=== PATIENT | female | born 1985 | race Caucasian/White ===

== ENCOUNTER 2016-04-28 18:02 | Emergency (ER) | payer SELFPAY ==
[2015-01-12 06:03] VITALS: BMI 29.2
[~2016-04-28 18:02] MED LIST: DIABETA2.5 MG PO; TYLENOL W/CODEI1 TAB PO
== END 2016-04-28 23:29 | disposition home or self-care (01) ==
LOC: D.ER 18:02
DX: S92.402A Displaced unspecified fracture of left great toe, initial encounter for closed fracture (principal); W01.0XXA Fall on same level from slipping, tripping and stumbling without subsequent striking against object, initial encounter; Y93.89 Activity, other specified; Y92.019 Unspecified place in single-family (private) house as the place of occurrence of the external cause; F41.8 Other specified anxiety disorders; J45.909 Unspecified asthma, uncomplicated; F32.9 Major depressive disorder, single episode, unspecified; E11.9 Type 2 diabetes mellitus without complications; E87.6 Hypokalemia; E83.42 Hypomagnesemia

== ENCOUNTER 2016-09-25 21:40 | Emergency (ER) | payer SELFPAY ==
[2015-01-12 06:03] VITALS: BMI 29.2
== END 2016-09-25 22:55 | disposition home or self-care (01) ==
LOC: D.ER 21:40
DX: S51.812A Laceration without foreign body of left forearm, initial encounter (principal); X58.XXXA Exposure to other specified factors, initial encounter

== ENCOUNTER 2016-11-03 12:59 | Inpatient (IN) | payer MEDICAID ==
[~2016-11-03] VITALS: Ht 162.6 cm; Wt 61.4 kg
[~2016-11-03 12:59] MED LIST changes: -DIABETA2.5 MG PO; +GLYBURIDE2.5 MG PO
[2016-11-03 14:18] LABS: BASOPHILS 0.1 % (0-2); EOSINOPHILS 0 % (0-7); HEMATOCRIT 40.8 % (36.0-48.0); HEMOGLOBIN 13.7 g/dL (12-16); IMMATURE GRANULOCYTES 0.4 % (0-5); LYMPHOCYTES 4.6 % (15-50); MCH 29.5 pg (26.0-34.0); MCHC 33.6 g/dL (31.0-37.0); MCV 87.7 fL (80.0-100.0); MEAN PLATELET VOLUME 10.7 fL (7.4-10.4); MONOCYTES 8.4 % (2-11); NEUTROPHILS 86.5 % (40-80); RBC 4.65 10x6/uL (4.00-5.40); RDW 12.5 % (11.5-14.5); WBC 13.6 10x3/uL (4.8-10.8)
[2016-11-03 14:21] LABS: PLATELET COUNT 220 10x3/uL (130-400)
[2016-11-03 14:31] LABS: ALBUMIN 2.7 g/dL (3.4-5.0); ANION GAP 18.2 mmol/L (8-16); BILIRUBIN - TOTAL 0.57 mg/dL (0.2-1.3); CALCIUM 8.6 mg/dL (8.5-10.1); CARBON DIOXIDE 21.3 mmol/L (21.0-32.0); POTASSIUM - SERUM 3.5 mmol/L (3.5-5.1); PROTEIN - SERUM 7.5 g/dL (6.4-8.2)
[2016-11-03 14:54] LABS: AMYLASE - SERUM 13 U/L (25-115); LIPASE 125 U/L (73-393)
[2016-11-03 16:06] LABS: HCG SERUM NEGATIVE (NEGATIVE); KETONE - SERUM NEGATIVE (NEGATIVE)
[2016-11-03 16:07] LABS: MAGNESIUM - SERUM 1.5 mg/dL (1.8-2.4)
[2016-11-03 16:18] LABS: APPEARANCE HAZY (CLEAR); BILIRUBIN NEGATIVE (NEGATIVE); COLOR YELLOW (YELLOW); GLUCOSE 1000 mg/dL (NEGATIVE); HCG URINE NEGATIVE (NEGATIVE); KETONE NEGATIVE (NEGATIVE); LEUKOCYTE ESTERASE 2+ (NEGATIVE); NITRITE POSITIVE (NEGATIVE); PROTEIN 2+ mg/dL (NEGATIVE); SPECIFIC GRAVITY 1.015 (1.005-1.020); UROBILINOGEN NORMAL (NORMAL)
[2016-11-03 16:19] LABS: BACTERIA MANY /hpf (NONE SEEN); WHITE CELLS - URINE >50 /hpf (0-5)
[2016-11-03 16:23] LABS: UDS - AMPHET NEGATIVE QUAL (NEGATIVE); UDS - BARB NEGATIVE QUAL (NEGATIVE); UDS - BENZO NEGATIVE QUAL (NEGATIVE); UDS - COCAINE NEGATIVE QUAL (NEGATIVE); UDS - METH NEGATIVE QUAL (NEGATIVE); UDS - OPIATE NEGATIVE QUAL (NEGATIVE); UDS - PCP NEGATIVE QUAL (NEGATIVE); UDS - THC NEGATIVE QUAL (NEGATIVE)
--- NOTE | 2016-11-03 19:58 | NUR ---
RECIEVED TO ROOM 2138 FROM E.R. VIA STRETCHER. PT A&O. RESPERATOINS EVEN ON RA, VITALS STABLE. IV TO RIGHT FOREARM WITH MAG. INFUSING. SITE CLEAN AND DRY. HISTORY AND MED REC OBTAINED. NO OTHER NEEDS AT THIS TIME. DINNER TRAY PROVIDED.
[2016-11-03 20:00] VITALS: BP 121/73; BP 97/55
[2016-11-03] MEDS ORDERED: GLUCOPHAGE500 MG PO (20:38)
[2016-11-03] MEDS ORDERED: DICLOFENAC SODI50 MG PO (20:39)
[2016-11-03] MEDS ORDERED: IBUPROFEN400 MG PO (20:40)
--- NOTE | 2016-11-03 21:50 | NUR ---
BS 249, COVERED PER S/S.
[2016-11-04] VITALS: BP 121/73
--- NOTE | 2016-11-04 00:32 | NUR ---
TYLENOL 650 MG GIVEN FOR ELEVATED TEMP OF 102.
--- NOTE | 2016-11-04 00:33 | NUR ---
PROFESSIONAL TUTOR AT BEDSIDE TO OBTAIN VITALS, CALL LIGHT IN REACH. WILL CONTINUE WITH PLAN OF CARE.
[2016-11-04 04:00] VITALS: BP 99/64
[2016-11-04 06:06] LABS: CALC OSMOLALITY 276 mosm/kg (275-300); CALCIUM 7.7 mg/dL (8.5-10.1); CARBON DIOXIDE 23.4 mmol/L (21.0-32.0); CHLORIDE - SERUM 101 mmol/L (98-107); CREATININE - SERUM 0.9 mg/dL (0.6-1.3); POTASSIUM - SERUM 3.4 mmol/L (3.5-5.1); SODIUM 136 mmol/L (136-145); UREA NITROGEN 11 mg/dL (7-18); eGFR NON AFRICAN AMERICAN 77 mL/min (90-120)
[2016-11-04 06:07] LABS: BASOPHILS 0.3 % (0-2); EOSINOPHILS 0.7 % (0-7); HEMATOCRIT 35.7 % (36.0-48.0); IMMATURE GRANULOCYTES 0.6 % (0-5); MCH 29.6 pg (26.0-34.0); MCHC 33.6 g/dL (31.0-37.0); MCV 88.1 fL (80.0-100.0); MEAN PLATELET VOLUME 10.9 fL (7.4-10.4); MONOCYTES 7.1 % (2-11); NEUTROPHILS 80.3 % (40-80); PLATELET COUNT 198 10x3/uL (130-400); RBC 4.05 10x6/uL (4.00-5.40); RDW 12.5 % (11.5-14.5)
[2016-11-04 06:10] LABS: GLUCOSE 202 mg/dL (74-106)
--- NOTE | 2016-11-04 08:23 | NUR ---
PT CO PAIN AND MEDICATED ACCORDINGLY. TEMP IS 103.2. ORALLY MEDICATED WITH TYLENOL 650 MG. SKIN VERY WARM TO TOUCH. WHEEZING NOTED ON INSPIRATION IN L UPPER LUNG. MONITOR SHOWS ST@ 118.
[2016-11-04 12:02] VITALS: Ht 162.6 cm; Wt 61.4 kg
[2016-11-04 13:08] VITALS: BP 122/59
[2016-11-04 13:09] VITALS: BP 94/63
--- NOTE | 2016-11-04 16:11 | NUR ---
RATIONALE FOR SCD'S EXPLAINED. REFUSED SCD'S AT THIS TIME
[2016-11-04 16:30] VITALS: BP 124/79
[2016-11-04 20:00] VITALS: BP 102/65
--- NOTE | 2016-11-04 22:02 | NUR ---
PERCOCET 1 TAB GIVEN FOR C/O PAIN TO LEFT SIDE, RATES PAIN AT AN 8 ON PAIN SCALE.
--- NOTE | 2016-11-04 22:27 | NUR ---
SUTURES TO LEFT ARM REMOVED, COVERED WITH BANDAID. PT TOLERATED WELL.
--- NOTE | 2016-11-05 03:42 | NUR ---
CANDY POLISHER AT BED SIDE TO OBTAIN VITALS, WILL CONT TO MONITOR.
[2016-11-05 04:00] VITALS: BP 111/66
[2016-11-05 05:17] LABS: BASOPHILS 0.2 % (0-2); EOSINOPHILS 0.8 % (0-7); HEMATOCRIT 33.1 % (36.0-48.0); IMMATURE GRANULOCYTES 0.6 % (0-5); LYMPHOCYTES 25.8 % (15-50); MCH 29.2 pg (26.0-34.0); MCHC 33.2 g/dL (31.0-37.0); MCV 87.8 fL (80.0-100.0); MEAN PLATELET VOLUME 11.1 fL (7.4-10.4); MONOCYTES 12.1 % (2-11); NEUTROPHILS 60.5 % (40-80); RBC 3.77 10x6/uL (4.00-5.40); RDW 12.6 % (11.5-14.5)
[2016-11-05 05:22] LABS: PLATELET COUNT 156 10x3/uL (130-400); WBC 5.3 10x3/uL (4.8-10.8)
[2016-11-05 05:32] LABS: CALCIUM 7.5 mg/dL (8.5-10.1); CARBON DIOXIDE 22.5 mmol/L (21.0-32.0); CHLORIDE - SERUM 104 mmol/L (98-107); CREATININE - SERUM 0.7 mg/dL (0.6-1.3); POTASSIUM - SERUM 3.2 mmol/L (3.5-5.1); SODIUM 138 mmol/L (136-145); eGFR NON AFRICAN AMERICAN > 90 mL/min (90-120)
[2016-11-05 05:39] LABS: CALC OSMOLALITY 274 mosm/kg (275-300); GLUCOSE 119 mg/dL (74-106); UREA NITROGEN 6 mg/dL (7-18)
--- NOTE | 2016-11-05 06:05 | NUR ---
PERCOCET 1 TAB GIVEN FOR C/O PAIN TO BACK, RATES PAIN AN 8 ON PAIN SCALE.
--- NOTE | 2016-11-05 08:10 | NUR ---
AM ROUNDS - PT IS AWAKE IN BED. SIDE RAILS UP X1, BED IN LOWEST POSITION, CALL POLANCO IN USE/REACH. MONITOR SHOWING SR, HR 86. IV TO RIGHT FA, NS AT 100CC/HR. PT IS ON RA. NO NEEDS AT THIS TIME. WILL CONTINUE TO MONITOR
[2016-11-05 10:02] VITALS: BP 106/66
[2016-11-05 14:42] VITALS: BP 117/70
[2016-11-05 17:48] VITALS: BP 126/76
[2016-11-05 19:00] VITALS: BP 140/78
--- NOTE | 2016-11-05 19:52 | NUR ---
ASSESSMENT COMPLETE, A&O. IV TO LEFT WRIST WITH NS INFUSING AT 100 CC/HR. PT DENIES PAIN OR NEEDS AT THIS TIME, BED LOW, CL IN REACH.
--- NOTE | 2016-11-06 00:37 | NUR ---
PERCOCET GIVEN FOR C/O PAIN. IV TO LEFT WRIST SL. PT C/O WRIST SORE. IV FLUSHED WITH OUT DIFFICULTY HOWEVER PT WAS INSISTANT THAT IS BE SHUT OFF.
--- NOTE | 2016-11-06 01:36 | NUR ---
CALL LIGHT IN REACH, WILL CONTINUE WITH PLAN OF CARE.
[2016-11-06 03:10] LABS: RMSF IGM 0.43 index (0.00-0.89)
[2016-11-06 06:07] LABS: BASOPHILS 0.4 % (0-2); EOSINOPHILS 1.2 % (0-7); HEMATOCRIT 33.3 % (36.0-48.0); HEMOGLOBIN 11.3 g/dL (12-16); IMMATURE GRANULOCYTES 1.6 % (0-5); LYMPHOCYTES 32.6 % (15-50); MCH 29.7 pg (26.0-34.0); MCHC 33.9 g/dL (31.0-37.0); MCV 87.6 fL (80.0-100.0); MEAN PLATELET VOLUME 10.6 fL (7.4-10.4); MONOCYTES 10.3 % (2-11); NEUTROPHILS 53.9 % (40-80); PLATELET COUNT 180 10x3/uL (130-400); RDW 12.6 % (11.5-14.5); WBC 5.7 10x3/uL (4.8-10.8)
[2016-11-06 06:19] LABS: CALC OSMOLALITY 281 mosm/kg (275-300); CALCIUM 8.4 mg/dL (8.5-10.1); CARBON DIOXIDE 26.3 mmol/L (21.0-32.0); CHLORIDE - SERUM 105 mmol/L (98-107); CREATININE - SERUM 0.7 mg/dL (0.6-1.3); GLUCOSE 74 mg/dL (74-106); POTASSIUM - SERUM 3.1 mmol/L (3.5-5.1); SODIUM 143 mmol/L (136-145); UREA NITROGEN 7 mg/dL (7-18); eGFR NON AFRICAN AMERICAN > 90 mL/min (90-120)
[2016-11-06 06:24] VITALS: BP 132/79
[2016-11-06 08:00] VITALS: BP 110/71
--- NOTE | 2016-11-06 08:23 | NUR ---
AM ROUNDS - PT IS AWAKE IN BED TALKING ON THE PHONE. MONITOR SHOWING SR, HR 93. BED AT LOWEST POSITION. CALL POLANCO IN USE/REACH. SIDE RAIL UP X1. PT IS UP AD KAYLEN. IV TO LEFT WRIST, PT C/O PAIN AT SITE. NO SWELLING, WARMTH OR REDNESS. IV FLUIDS ON HOLD AT THIS TIME. WILL REASSESS IV. NO FUTHER NEEDS AT THIS TIME. WILL CONTINUE TO MONITOR
--- NOTE | 2016-11-06 12:04 | NUR ---
MORNING MEDICATIONS GIVEN. NO FUTHER NEEDS AT THIS TIME. WILL CONTINUE TO MONITOR
[2016-11-06] MEDS ORDERED: CIPRO500 MG PO (13:56)
[2016-11-06] MEDS ORDERED: FLORAJEN3 CAPS460 MG PO (13:56)
[2016-11-06] MEDS ORDERED: GLYBURIDE2.5 MG PO (13:56)
[2016-11-06] MEDS ORDERED: GLUCOPHAGE500 MG PO (13:56)
--- NOTE | 2016-11-06 17:46 | NUR ---
D/C - WRITTEN AND VERBAL D/C INSTRUCTIONS GIVEN TO PT. IV D/C WITH CATH TIP INTACT. 2X2 DRESSING APPLIED AND SECURED WITH TAPE. PT REFUSED A WHEELCHAIR AND STATED SHE WANTED TO WALK OUT. WILL D/C
--- NOTE | 2016-11-06 20:24 | NUR ---
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 Yes 0 * How many steps to enter\exit or inside your home? 6 0 * PCP NONE - REFERRED TO [facility] (INFORMATION PROVIDED BY CM) 0 * Pharmacy [facility] [address] 0 * Preadmission Environment Home with Family 0 * ADLs Independent 0 * Equipment None 0 * Other Equipment NO MEDICAL EQUIPMENT PROVIDER PREFERENCE 0 * List name and contact numbers for known caregivers / representatives who currently or will assist patient after discharge: CAREN ROTHMANR, SISTER, LEYLA BURCIAGA, SPOUSE, 0 * Community resources currently utilized None 0 * Please name any agencies selected above. NONE 0 * Additional services required to return to the preadmission environment? No 0 * Can the patient safely return to the preadmission environment? Yes 0 * Has this patient been hospitalized within the prior 30 days at any hospital? No 0 CM MET WITH PT IN ROOM TO DISCUSS DISCHARGE PLANNING AND NEEDS. PT REPORTS LIVING AT HOME INDEPENDENTLY WITH HER SPOUSE. PT HAS NO MEDICAL EQUIPMENT AND NO OUTSIDE SERVICES ASSISTING IN THE HOME. CM DISCUSSED AVAILABILITY OF HOME HEALTH, REHAB SERVICES AND MEDICAL EQUIPMENT. PT DENIES DISCHARGE NEEDS, REPORTS HER SSPOUSE WILL PICK HER UP FOR DISCHARGE HOME. Sales And Service Agent: Phil Ortiz
[2016-11-10 12:11] LABS: F. TULARENSIS - IGG Negative (()); F. TULARENSIS - IGM Negative (())
[2016-11-10 16:11] LABS: EHRLICHIA CHAFF IGG Negative (Neg:<1:64); EHRLICHIA CHAFF IGM Negative (Neg:<1:20); HGE IGG TITER Negative (Neg:<1:64); HGE IGM TITER Negative (Neg:<1:20)
== END 2016-11-06 17:54 | disposition home or self-care (01) | DRG 690 ==
LOC: D.ER 12:59 → D.M2 17:52
PROVIDERS: Emergency Medicine; Nurse Practitioner Family; ADMIT Family Medicine
DX: N10 Acute pyelonephritis (principal); E11.65 Type 2 diabetes mellitus with hyperglycemia; I10 Essential (primary) hypertension; Z91.19 Patient's noncompliance with other medical treatment and regimen; R19.7 Diarrhea, unspecified; T14.8 Other injury of unspecified body region; W57.XXXA Bitten or stung by nonvenomous insect and other nonvenomous arthropods, initial encounter

== ENCOUNTER 2017-01-14 11:20 | Emergency (ER) | payer MEDICAID ==
[2016-11-04 12:02] VITALS: BMI 24.0
[~2017-01-14 11:20] MED LIST changes: +CIPRO500 MG PO; +DICLOFENAC SODI50 MG PO; +FLORAJEN3 CAPS460 MG PO; +GLUCOPHAGE500 MG PO; +IBUPROFEN400 MG PO
== END 2017-01-14 15:25 | disposition home or self-care (01) ==
LOC: D.ER 11:20
DX: S00.531A Contusion of lip, initial encounter (principal); V49.9XXA Car occupant (driver) (passenger) injured in unspecified traffic accident, initial encounter; Y93.89 Activity, other specified; Y92.410 Unspecified street and highway as the place of occurrence of the external cause; M54.5 Low back pain; F17.200 Nicotine dependence, unspecified, uncomplicated

== ENCOUNTER 2017-02-18 12:51 | Emergency (ER) | payer MEDICAID ==
[2016-11-04 12:02] VITALS: BMI 24.0
== END 2017-02-18 14:22 | disposition home or self-care (01) ==
LOC: D.ER 12:51
DX: M79.602 Pain in left arm (principal); W19.XXXA Unspecified fall, initial encounter; Y93.89 Activity, other specified; Y92.029 Unspecified place in mobile home as the place of occurrence of the external cause; E11.9 Type 2 diabetes mellitus without complications

== ENCOUNTER 2017-07-24 15:40 | Emergency (ER) | payer MEDICAID ==
[2016-11-04 12:02] VITALS: BMI 24.0
[2017-07-24 17:15] LABS: APPEARANCE HAZY (CLEAR); BACTERIA MANY /hpf (NONE SEEN); BILIRUBIN NEGATIVE (NEGATIVE); COLOR DK YELLOW (YELLOW); EPITHELIAL CELLS 0-5 /hpf (0-5); GLUCOSE NEGATIVE (NEGATIVE); KETONE NEGATIVE (NEGATIVE); NITRITE POSITIVE (NEGATIVE); PROTEIN 1+ mg/dL (NEGATIVE); RED CELLS - URINE 0-5 /hpf (0-5); SPECIFIC GRAVITY 1.015 (1.005-1.020); UROBILINOGEN NORMAL (NORMAL); WHITE CELLS - URINE >50 /hpf (0-5)
[2017-07-24 18:10] LABS: BASOPHILS 0.2 % (0-2); EOSINOPHILS 0.1 % (0-7); HEMATOCRIT 42.4 % (36.0-48.0); HEMOGLOBIN 14.4 g/dL (12-16); IMMATURE GRANULOCYTES 0.4 % (0-5); LYMPHOCYTES 18.3 % (15-50); MCH 28.9 pg (26.0-34.0); MCV 85.1 fL (80.0-100.0); MEAN PLATELET VOLUME 11.2 fL (7.4-10.4); RBC 4.98 10x6/uL (4.00-5.40); RDW 13.6 % (11.5-14.5); WBC 13.8 10x3/uL (4.8-10.8)
[2017-07-24 18:17] LABS: PLATELET COUNT 256 10x3/uL (130-400)
[2017-07-24 18:33] LABS: ALBUMIN 3.2 g/dL (3.4-5.0); ALKALINE PHOSPHATASE 61 U/L (46-116); ALT (SGPT) 24 U/L (10-68); AMYLASE - SERUM 15 U/L (25-115); CALC OSMOLALITY 273 mosm/kg (275-300); CALCIUM 8.5 mg/dL (8.5-10.1); CARBON DIOXIDE 27.9 mmol/L (21.0-32.0); CHLORIDE - SERUM 98 mmol/L (98-107); CREATININE - SERUM 0.9 mg/dL (0.6-1.3); GLUCOSE 164 mg/dL (74-106); LIPASE 94 U/L (73-393); PROTEIN - SERUM 7.9 g/dL (6.4-8.2); SODIUM 136 mmol/L (136-145); UREA NITROGEN 7 mg/dL (7-18); eGFR NON AFRICAN AMERICAN 77 mL/min (90-120)
[2017-07-24 18:36] LABS: POTASSIUM - SERUM 2.7 mmol/L (3.5-5.1)
== END 2017-07-24 21:45 | disposition home or self-care (01) ==
LOC: D.ER 15:40
PROVIDERS: Family Medicine
DX: N10 Acute pyelonephritis (principal); N30.00 Acute cystitis without hematuria; E11.9 Type 2 diabetes mellitus without complications

== ENCOUNTER 2017-08-29 19:45 | Emergency (ER) | payer MEDICAID ==
[2016-11-04 12:02] VITALS: BMI 24.0
[2017-08-29 20:14] LABS: BASOPHILS 0.3 % (0-2); EOSINOPHILS 2.6 % (0-7); HEMATOCRIT 38.8 % (36.0-48.0); HEMOGLOBIN 12.4 g/dL (12-16); IMMATURE GRANULOCYTES 0.2 % (0-5); LYMPHOCYTES 37.6 % (15-50); MCH 28.3 pg (26.0-34.0); MCV 88.6 fL (80.0-100.0); MEAN PLATELET VOLUME 9.8 fL (7.4-10.4); MONOCYTES 5.8 % (2-11); NEUTROPHILS 53.5 % (40-80); PLATELET COUNT 283 10x3/uL (130-400); RBC 4.38 10x6/uL (4.00-5.40); RDW 14.9 % (11.5-14.5); WBC 10.3 10x3/uL (4.8-10.8)
[2017-08-29 20:18] LABS: APPEARANCE SLT CLOUDY (CLEAR); BILIRUBIN NEGATIVE (NEGATIVE); COLOR YELLOW (YELLOW); GLUCOSE NEGATIVE (NEGATIVE); KETONE NEGATIVE (NEGATIVE); NITRITE NEGATIVE (NEGATIVE); PROTEIN TRACE mg/dL (NEGATIVE); SPECIFIC GRAVITY 1.015 (1.005-1.020); UROBILINOGEN NORMAL (NORMAL)
[2017-08-29 20:20] LABS: EPITHELIAL CELLS 0-5 /hpf (0-5); RED CELLS - URINE 0-5 /hpf (0-5)
[2017-08-29 20:21] LABS: BACTERIA FEW /hpf (NONE SEEN)
[2017-08-29 20:30] LABS: ALBUMIN 3.1 g/dL (3.4-5.0); ALKALINE PHOSPHATASE 52 U/L (46-116); ALT (SGPT) 31 U/L (10-68); CALC OSMOLALITY 279 mosm/kg (275-300); CALCIUM 8.5 mg/dL (8.5-10.1); CARBON DIOXIDE 26.6 mmol/L (21.0-32.0); CHLORIDE - SERUM 107 mmol/L (98-107); CREATININE - SERUM 0.9 mg/dL (0.6-1.3); GLUCOSE 141 mg/dL (74-106); POTASSIUM - SERUM 3.2 mmol/L (3.5-5.1); PROTEIN - SERUM 6.7 g/dL (6.4-8.2); SODIUM 140 mmol/L (136-145); UREA NITROGEN 9 mg/dL (7-18); eGFR NON AFRICAN AMERICAN 77 mL/min (90-120)
== END 2017-08-29 21:50 | disposition home or self-care (01) ==
LOC: D.ER 19:45
PROVIDERS: Family Medicine
DX: N39.0 Urinary tract infection, site not specified (principal); J06.9 Acute upper respiratory infection, unspecified; R30.0 Dysuria; F17.200 Nicotine dependence, unspecified, uncomplicated

== ENCOUNTER 2017-12-25 18:55 | Emergency (ER) | payer MEDICAID ==
[~2017-12-25] VITALS: Ht 162.6 cm; Wt 74.1 kg
[2017-12-25 18:57] VITALS: Ht 162.6 cm; Wt 74.1 kg
[2017-12-25] MEDS ORDERED: SEROQUEL50 MG PO (19:00)
[2017-12-25] MEDS ORDERED: EFFEXOR50 MG PO (19:01)
[2017-12-25] MEDS ORDERED: XANAX0.5 MG (19:02)
[2017-12-25 19:51] LABS: HCG URINE NEGATIVE (NEGATIVE)
[2017-12-25 20:04] LABS: APPEARANCE HAZY (CLEAR); BILIRUBIN NEGATIVE (NEGATIVE); COLOR YELLOW (YELLOW); GLUCOSE NEGATIVE (NEGATIVE); KETONE NEGATIVE (NEGATIVE); NITRITE NEGATIVE (NEGATIVE); PROTEIN TRACE mg/dL (NEGATIVE); SPECIFIC GRAVITY 1.015 (1.005-1.020); UROBILINOGEN NORMAL (NORMAL)
[2017-12-25 20:05] LABS: BACTERIA MANY /hpf (NONE SEEN); EPITHELIAL CELLS 0-5 /hpf (0-5); RED CELLS - URINE >50 /hpf (0-5); WHITE CELLS - URINE 0-5 /hpf (0-5)
[2017-12-25] MEDS ORDERED: TORADOL10 MG PO (22:02)
[2017-12-25] MEDS ORDERED: OMNICEF300 MG PO (22:02)
[2017-12-25 22:15] VITALS: BP 128/83
== END 2017-12-25 22:15 | disposition home or self-care (01) ==
LOC: D.ER 18:55
PROVIDERS: Family Medicine
DX: H66.91 Otitis media, unspecified, right ear (principal); J40 Bronchitis, not specified as acute or chronic; R30.0 Dysuria; R10.9 Unspecified abdominal pain; R09.89 Other specified symptoms and signs involving the circulatory and respiratory systems; E11.9 Type 2 diabetes mellitus without complications; F17.200 Nicotine dependence, unspecified, uncomplicated

== ENCOUNTER 2018-07-18 02:13 | Emergency (ER) | payer MEDICAID ==
[~2018-07-18] VITALS: Ht 162.6 cm; Wt 83.9 kg
[~2018-07-18 02:13] MED LIST changes: +EFFEXOR50 MG PO; +OMNICEF300 MG PO; +SEROQUEL50 MG PO; +TORADOL10 MG PO; +XANAX0.5 MG PO
[2018-07-18 02:19] VITALS: Ht 162.6 cm; Wt 83.9 kg
[2018-07-18 02:40] LABS: APPEARANCE CLEAR (CLEAR); BACTERIA NONE SEEN /hpf (NONE SEEN); BILIRUBIN NEGATIVE (NEGATIVE); COLOR YELLOW (YELLOW); EPITHELIAL CELLS RARE /hpf (0-5); GLUCOSE NEGATIVE (NEGATIVE); HCG URINE NEGATIVE (NEGATIVE); KETONE NEGATIVE (NEGATIVE); NITRITE NEGATIVE (NEGATIVE); PROTEIN NEGATIVE (NEGATIVE); RED CELLS - URINE NONE SEEN /hpf (0-5); SPECIFIC GRAVITY 1.015 (1.005-1.020); UROBILINOGEN NORMAL (NORMAL); WHITE CELLS - URINE 0-5 /hpf (0-5)
[2018-07-18 02:41] LABS: BASOPHILS 0.3 % (0-2); EOSINOPHILS 2.9 % (0-7); HEMATOCRIT 38.4 % (36.0-48.0); HEMOGLOBIN 12.7 g/dL (12-16); IMMATURE GRANULOCYTES 0.3 % (0-5); LYMPHOCYTES 37.5 % (15-50); MCH 28.9 pg (26.0-34.0); MCHC 33.1 g/dL (31.0-37.0); MCV 87.5 fL (80.0-100.0); MEAN PLATELET VOLUME 10.2 fL (7.4-10.4); PLATELET COUNT 293 10x3/uL (130-400); RBC 4.39 10x6/uL (4.00-5.40); RDW 13.1 % (11.5-14.5); WBC 10.5 10x3/uL (4.8-10.8)
[2018-07-18 02:53] LABS: ALBUMIN 3.5 g/dL (3.4-5.0); ALKALINE PHOSPHATASE 67 U/L (46-116); ALT (SGPT) 18 U/L (10-68); AMYLASE - SERUM 34 U/L (25-115); BILIRUBIN - TOTAL 0.37 mg/dL (0.2-1.3); CALC OSMOLALITY 282 mosm/kg (275-300); CARBON DIOXIDE 24.8 mmol/L (21.0-32.0); CHLORIDE - SERUM 101 mmol/L (98-107); CREATININE - SERUM 0.9 mg/dL (0.6-1.3); GLUCOSE 260 mg/dL (74-106); LIPASE 266 U/L (73-393); PROTEIN - SERUM 7.3 g/dL (6.4-8.2); SODIUM 137 mmol/L (136-145); TROPONIN-I < 0.017 ng/mL (0.000-0.060); UREA NITROGEN 13 mg/dL (7-18); eGFR NON AFRICAN AMERICAN 76 mL/min (90-120)
[2018-07-18] MEDS ORDERED: ACETAMINOPHEN500 M1 PO (05:20)
[2018-07-18] MEDS ORDERED: IBUPROFEN800 MG PO (05:20)
[2018-07-18] MEDS ORDERED: CYCLOBENZAPRINE10 MG PO (05:20)
[2018-07-18 05:27] VITALS: BP 125/76
== END 2018-07-18 05:27 | disposition home or self-care (01) ==
LOC: D.ER 02:13
PROVIDERS: Family Medicine
DX: R10.30 Lower abdominal pain, unspecified (principal)

== ENCOUNTER 2018-07-26 06:26 | Day surgery (SDC) | payer MEDICAID ==
[2018-07-23 14:01] LABS: BASOPHILS 0.4 % (0-2); HEMATOCRIT 35.6 % (36.0-48.0); HEMOGLOBIN 11.8 g/dL (12-16); IMMATURE GRANULOCYTES 0.3 % (0-5); MCH 28.6 pg (26.0-34.0); MCHC 33.1 g/dL (31.0-37.0); MCV 86.4 fL (80.0-100.0); MEAN PLATELET VOLUME 9.6 fL (7.4-10.4); MONOCYTES 6.3 % (2-11); PLATELET COUNT 271 10x3/uL (130-400); RBC 4.12 10x6/uL (4.00-5.40); RDW 13.3 % (11.5-14.5); WBC 7.7 10x3/uL (4.8-10.8)
[2018-07-23 14:16] LABS: ANION GAP 13.7 mmol/L (8-16); CALCIUM 7.6 mg/dL (8.5-10.1); CARBON DIOXIDE 23.1 mmol/L (21.0-32.0); CREATININE - SERUM 1.2 mg/dL (0.6-1.3); POTASSIUM - SERUM 3.8 mmol/L (3.5-5.1)
[~2018-07-26] VITALS: Ht 162.6 cm; Wt 85.3 kg
--- NOTE | ~2018-07-26 | OP ---
PATIENT NAME: MONIK BURCIAGA MEDICAL RECORD: [id number] :85 LOCATION:D.OPS ADMISSION DATE: SURGEON: NIC PERKINS MD DATE OF OPERATION: 07/26/2018 PREOPERATIVE DIAGNOSES: 1. Pelvic pain. 2. Dysmenorrhea. 3. Dysfunctional uterine bleeding. 4. Cervical stenosis. POSTOPERATIVE DIAGNOSES: 1. Pelvic pain. 2. Dysmenorrhea. 3. Dysfunctional uterine bleeding. 4. Severe pelvic adhesive disease. 5. Cervical stenosis. PROCEDURES: 1. Diagnostic laparoscopy. 2. Laparoscopic lysis of adhesions. 3. Hysteroscopy with dilation and curettage. SURGEON: Nic Perkins MD JOURNEYMAN TOOL AND DIE MAKER: Viv Henley ANESTHESIOLOGIST: Dr. Swartz ANESTHESIA: General. FINDINGS: Uterus is slightly enlarged and boggy. The uterus is densely adhesed anteriorly to the abdominal wall. The tube was adhesed to the anterior abdominal wall. At the time of hysteroscopy, the lining was lush, no evidence of polyp or fibroid in the uterine cavity. No active endometriosis visualized in the pelvis. SPECIMEN REMOVED: Endometrial curettings. SPECIMEN DISPOSITION: Pathology. ESTIMATED BLOOD LOSS: Minimal. FLUIDS: 1400 cc lactated Ringer. URINE OUTPUT: Quantity sufficient to void prior to this procedure. COMPLICATIONS: Bradycardic event with insufflation initially with fast return with release of gas and atropine. DRAINS: None. INDICATIONS: The patient is a 33-year-old female using tubal ligation for control with irregular painful periods. The patient states that the pelvic pain prevents her from performing the events of daily living and has negative impact OPERATIVE REPORT [id number] MONIK BURCIAGA on interpersonal relationships. The patient was unable to provide endometrial biopsy in the clinic due to a stenotic cervix. DESCRIPTION OF PROCEDURE: After informed consent was assured, the patient was taken to the operating room, where anesthetic was obtained. The patient was placed in Christ stirrups and prepped and draped. Incision was made at the umbilicus to accommodate a 5-mm trocar. This trocar was inserted without difficulty and pneumoperitoneum established. The patient was now in Trendelenburg position. Accessory ports were placed in the right lower quadrant and in the midline, 2 fingerbreadths above the symphysis. At this point, JOURNEYMAN TOOL AND DIE MAKER notifies me that the heart rate has dropped off less than 30 and the pneumoperitoneum was immediately released and the patient was taken out of Trendelenburg position. After the patient received atropine and was reassessed normal sinus rhythm with heart rate in the upper 50s was established. The patient undergoes a reinsufflation again and placed in Trendelenburg position without reduction in heart rate or blood pressure. A grasper was inserted and the adhesions placed on gentle traction from the right lower quadrant. Using monopolar cautery hook, the adhesions of the tube to the anterior abdominal wall and the dense adhesions from the mid uterus to the bladder flap were taken down. After this had been performed, inspection revealed adequate hemostasis across the operative field. Pneumoperitoneum was released and the accessory trocars were removed. The primary trocar was now removed and all sites were reapproximated with a subcuticular stitch and Dermabond applied. Attention was now directed to the vagina where the patient was now positioned and a speculum introduced. The cervix was grasped with a single tooth tenaculum and using a uterine sound, the cervix was dilated. The dilation continues with resistance until diagnostic hysteroscope can be introduced under direct visualization. Using saline as a distention media the above findings were encountered in the uterine cavity. Both ostia were visualized. After conclusion of the hysteroscopy, the fluid was removed. The cervix was now serially dilated to accommodate a #2 sharp curette. This curette was passed gently to the fundus and traction applied to the uterine wall as it was withdrawn from the cavity. This was performed until good cry was obtained throughout. The tissue was placed on Telfa and sent off the field for specimen. The single tooth tenaculum was removed from the cervix and bleeding was noted from the cervical site puncture sites. The ring forceps were placed here and removed after the patient has been placed onto the rtalihina. Sponge, lap, and needle counts correct times 2. TRANSINT:[id number] Voice Confirmation ID: [id number] DOCUMENT ID: [id number] NIC PERKINS MD CC: [id number] DICTATION DATE: 07/26/18 1136 PANEL INSTALLER: 07/26/18 1256 [facility] [address] [id number]
[~2018-07-26 06:26] MED LIST changes: +ACETAMINOPHEN500 M1 PO; +CYCLOBENZAPRINE10 MG PO; +IBUPROFEN800 MG PO
[2018-07-26 07:01] LABS: HCG URINE NEGATIVE (NEGATIVE)
[2018-07-26 07:27] VITALS: BP 128/87; Ht 162.6 cm; Wt 85.3 kg
[2018-07-26] MEDS ORDERED: LISINOPRIL20 MG PO (07:42)
--- NOTE | 2018-07-26 12:41 | NUR ---
1223 RECIEVED REPORT FROM SUPRIYA IN PACU. PT AWAKE ABLE TO MOVE UP IN BED. MILD PAIN NOTED. TOLERATING A FULL LIQ DIET
--- NOTE | 2018-07-26 13:02 | NUR ---
1300 DISCHARGE INSTRUCTIONS GIVEN TO PT AND . MILD ELEVATED B/P RECIEVED RX AND PAIN MEDS PO 08/27
--- NOTE | 2018-07-26 14:29 | NUR ---
IV REMOVED AT 1345 VOIDED AND ABLE TO WALK IN ROOM
== END 2018-07-26 14:15 | disposition home or self-care (01) ==
LOC: D.OPS 06:26 → D.PAN 08:40 → D.OPS 09:00
PROVIDERS: Anesthesiology; ATTEND Obstetrics & Gynecology
DX: N73.6 Female pelvic peritoneal adhesions (postinfective) (principal); N88.2 Stricture and stenosis of cervix uteri; N94.6 Dysmenorrhea, unspecified; N93.8 Other specified abnormal uterine and vaginal bleeding; Z01.812 Encounter for preprocedural laboratory examination

== ENCOUNTER 2018-08-16 17:33 | Inpatient (IN) | payer MEDICAID ==
[~2018-08-16] VITALS: Ht 162.6 cm; Wt 83.2 kg
[~2018-08-16 17:33] MED LIST changes: +LISINOPRIL20 MG PO
[2018-08-20] MEDS ORDERED: BENTYL 20 MG TA20 MG PO (10:20)
[2018-08-20 11:25] LABS: ANION GAP 15.1 mmol/L (8-16); CALCIUM 8.8 mg/dL (8.5-10.1); CARBON DIOXIDE 24.7 mmol/L (21.0-32.0); POTASSIUM - SERUM 3.8 mmol/L (3.5-5.1)
[2018-08-20 11:52] LABS: BASOPHILS 0.5 % (0-2); EOSINOPHILS 2.1 % (0-7); HEMOGLOBIN 13.5 g/dL (12-16); IMMATURE GRANULOCYTES 0.4 % (0-5); LYMPHOCYTES 31.6 % (15-50); MCH 29.4 pg (26.0-34.0); MCHC 33.8 g/dL (31.0-37.0); MCV 87.1 fL (80.0-100.0); MEAN PLATELET VOLUME 10.4 fL (7.4-10.4); MONOCYTES 6.5 % (2-11); NEUTROPHILS 58.9 % (40-80); PLATELET COUNT 307 10x3/uL (130-400); RBC 4.59 10x6/uL (4.00-5.40); RDW 13.2 % (11.5-14.5); WBC 8.4 10x3/uL (4.8-10.8)
[2018-08-23] VITALS (11 sets, daily range): BP systolic 93–147; BP diastolic 59–96; BMI 31.5
[2018-08-23] MEDS ORDERED: GLUCOPHAGE1000 MG PO (06:04)
[2018-08-23 06:10] LABS: HCG URINE NEGATIVE (NEGATIVE)
--- NOTE | 2018-08-23 11:45 | NUR ---
RECEIVED PT FROM POST DEX OF DR. PERKINS. PT HAS LARGE WHITE DRESSING OVER LOW TRANSVERSE INCISION, C/D/I. PT HAS BEARD CATH IN PLACE DRAINING DARK YELLOW URINE, TOTAL OUTPUT AT THIS TIME IS 150 ML'S IN UROMETER BAG. PT HAS BILATERAL SCD'S IN PLACE, CONNECTED TO PUMP. PT REPORTING PAIN TO INCISIONAL AREA, AND REPORTING PAIN/PULLING IN BEARD CATHETER, NEW LEG CONNECTOR TO BEARD PLACED. DENIES SOB, DIZZINESS OR DIFFICULTY BREATHING. PT DENIES NAUSEA. REQUESTING DIET SPRITE TO DRINK, SERVED. SEE EMAR FOR ALL MEDS ADM BY THIS RN. PT'S MOTHER TO BEDSIDE. SR UP X2, CALL LIGHT AND PHONE WITHIN REACH.
--- NOTE | 2018-08-23 11:50 | NUR ---
DR. PERKINS ON UNIT, WITH ORDERS RECEIVED.
--- NOTE | 2018-08-23 12:30 | NUR ---
REPORT GIVEN TO MURTAZA CASTAÑEDA RN.
--- NOTE | 2018-08-23 12:50 | NUR ---
TELEPHONE CALL MADE TO DR. PERKINS, PT IS REPORTING, IS HER MOTHER, THAT THE MORPHINE DOES NOT WORK FOR HER, BUT DILAUDID DOES. TELEPHONE ORDER RECEIVED TO ADMINISTER 1 MG DILAUDID IVP Q 4 HOURS PRN PAIN, UNTIL PT IS TOLERATING PO, THEN WILL SWITCH PAIN MEDICATION TO PO PER DR. PERKINS.
--- NOTE | 2018-08-23 12:50 | NUR ---
TELEPHONE ORDER RECEIVED TO STOP MORPHINE ECONOMICS INSTRUCTOR, AND THEN ADM DILAUDID 1 MG IVP EVERY 4 HOURS PRN PAIN.
--- NOTE | 2018-08-23 13:09 | NUR ---
DILAUDID 1 MG GIVEN IVP FOR ABOMINAL INCISION PAIN AT LEVEL #8
--- NOTE | 2018-08-23 16:30 | NUR ---
RECEIVED SHIFT REPORT FROM STANLEY JACOBSON RN
--- NOTE | 2018-08-23 17:30 | NUR ---
THIS RN AND MURTAZA MOSES RN IN ROOM, MURTAZA MOSES RN ADM TORADOL SIVP PER MD ORDERS, AFTER ADM, PT COMPLAINED THAT ARM WAS SLIGHTLY HURTING, UPON EXAMINATION, IV NOTED TO BE INFILTRATED, IV D/C'ED PER MURTAZA CASTAÑEDA RN, TIP INTACT, PRESSURE HELD, BANDAID APPLIED, WILL START NEW IV
--- NOTE | 2018-08-23 17:45 | NUR ---
IV INFILTRATED IN RIGHT ARM. RESITED IN LEFT UPPER ARM WITH #22G ANGIOCATH X 2 ATTEMPTS PER MURTAZA CASTAÑEDA RN.
--- NOTE | 2018-08-23 17:54 | NUR ---
DILAUDID 2 MG IVP GIVEN FOR LEVEL #9 ABDOMINAL PAIN
--- NOTE | 2018-08-23 19:30 | NUR ---
ASSESSMENT PER FLOW SHEET, VS OBTAINED, IV IN UPPER LEFT ARM INTACT WITH NO REDNESS OR EDEMA INFUSING VIA PUMP LR AT 125 ML/HR, PT RATES PAIN 4/10 AT THIS TIME, BIKINI INC WITH LARGE DRESSING CDI WITH NO DRAINAGE NOTED, FRESH ICE PACK TO ABD, NO VAG BLEEDING NOTED, BEARD CATH INTACT DRAINING LIGHT COLORED URINE, SCD'S ON AND WORKING PROPERLY, PT INST ON AND DEMONSTRATED I.S. WITH GOOD EFFORT, PT REQUESTED AND SERVED DIET COLA, DENIES FURTHER NEEDS
--- NOTE | 2018-08-23 20:02 | NUR ---
NEW BAG OF LR HUNG PER MD ORDERS, SEE EMAR, PT DENIES NEEDS AT THIS TIME
--- NOTE | 2018-08-23 21:30 | NUR ---
PT RESTING WITH EYES CLOSED, RESP QUIET, NO DISTRESS NOTED, LEFT UNDISTURBED AT THIS TIME
--- NOTE | 2018-08-23 22:28 | NUR ---
PT RESTING WITH EYES CLOSED, RESP QUIET, NO DISTRESS NOTED, LEFT UNDISTURBED AT THIS TIME, SCD'S CONTINUE ON AND WORKING PROPERLY
--- NOTE | 2018-08-23 23:57 | NUR ---
PT RESTING WITH EYES CLOSED, AROUSES TO SOFT VERBAL STIMUALTION, VS OBTAINED, PT INST ON AND DEMONSTRATED I.S. WITH GOOD EFFORT, STRESSED TO PT ABOUT USING I.S., PT VERBALIZES UNDERSTANDING, TCDB, PT REPOSITIONED TO RIGHT SIDE WITH PILLOW BEHIND BACK AND UNDER ABD, ADM TORADOL SIVP PER MD ORDERS, SEE EMAR, FRESH ICE PACK, BEARD CATH EMPTIED, SCD'S CONTINUE ON AND WORKING PROPERLY, REQUESTED AND SERVED ORANGE SANIAO, MARIANNA CASTELLON NEEDS
--- NOTE | 2018-08-24 01:01 | NUR ---
PT RESTING WITH EYES CLOSED, AROUSES TO SOFT VERBAL STIMULATION, OBTAINED TEMP AT THIS TIME, DENIES NEEDS AT THIS TIME
--- NOTE | 2018-08-24 02:18 | NUR ---
PT RESTING WITH EYES CLOSED, RESP QUIET, NO DISTRESS NOTED, LEFT UNDISTURBED AT THIS TIME
[2018-08-24 03:56] VITALS: BP 106/74
--- NOTE | 2018-08-24 03:56 | NUR ---
PT RESTING WITH EYES CLOSED, AROUSES TO SOFT VERBAL STIMULATION, VS OBTAINED, I&O'S COLLECTED, PT C/O INC PAIN, ADM DILAUDID SIVP AND HUNG NEW BAG OF LR PER MD ORDERS, SEE EMAR, FRESH ICE PACK TO ABD, SERVED FRESH H20, SCD'S CONTINUE ON AND WORKING PROPERLY, DENIES FURTHER NEEDS
--- NOTE | 2018-08-24 04:57 | NUR ---
LAB IN ROOM FOR AM BLOOD DRAW, OBTAINED TEMP, WILL CALL DR LANE
--- NOTE | 2018-08-24 04:58 | NUR ---
DR LANE PAGED
--- NOTE | 2018-08-24 05:03 | NUR ---
DR LANE CALLS UNIT, REPORT OF PT'S TEMPS AND ADM OF MEDS, NO ORDERS RECEIVED, HE REPORTS THAT HE WILL INFORM DR PERKINS OF PT'S TEMPS
--- NOTE | 2018-08-24 06:19 | NUR ---
PT AWAKE, LOOKING AT PHONE, RATES INC PAIN 06/27, DENIES NEEDS AT THIS TIME
[2018-08-24 06:29] LABS: CALC OSMOLALITY 270 mosm/kg (275-300); CALCIUM 7.5 mg/dL (8.5-10.1); CARBON DIOXIDE 20.5 mmol/L (21.0-32.0); CHLORIDE - SERUM 106 mmol/L (98-107); CREATININE - SERUM 0.7 mg/dL (0.6-1.3); POTASSIUM - SERUM 4.5 mmol/L (3.5-5.1); SODIUM 135 mmol/L (136-145); UREA NITROGEN 6 mg/dL (7-18); eGFR NON AFRICAN AMERICAN > 90 mL/min (90-120)
[2018-08-24 06:39] LABS: BASOPHILS 0.2 % (0-2); EOSINOPHILS 1.8 % (0-7); HEMATOCRIT 35.3 % (36.0-48.0); HEMOGLOBIN 11.2 g/dL (12-16); IMMATURE GRANULOCYTES 0.3 % (0-5); LYMPHOCYTES 21.5 % (15-50); MCH 28.3 pg (26.0-34.0); MCHC 31.7 g/dL (31.0-37.0); MCV 89.1 fL (80.0-100.0); MEAN PLATELET VOLUME 11.2 fL (7.4-10.4); NEUTROPHILS 69.2 % (40-80); RBC 3.96 10x6/uL (4.00-5.40); RDW 13.1 % (11.5-14.5); WBC 10.1 10x3/uL (4.8-10.8)
[2018-08-24 06:41] LABS: GLUCOSE 155 mg/dL (74-106)
[2018-08-24 06:49] LABS: PLATELET COUNT 226 10x3/uL (130-400)
--- NOTE | 2018-08-24 07:00 | NUR ---
SHIFT REPORT TO LUÍS VILLEDA RN
--- NOTE | 2018-08-24 07:58 | OP ---
PATIENT NAME: MONIK BURCIAGA MEDICAL RECORD: [id number] :85 LOCATION:[facility] D.1218 ADMISSION DATE:08/23/18 SURGEON: NIC PERKINS MD DATE OF OPERATION: 08/23/2018 PREOPERATIVE DIAGNOSES: 1. Dysfunctional uterine bleeding. 2. Dysmenorrhea. 3. Pelvic pain. 4. History of adhesive disease. 5. Cervical stenosis. POSTOPERATIVE DIAGNOSES: 1. Dysfunctional uterine bleeding. 2. Dysmenorrhea. 3. Pelvic pain. 4. History of adhesive disease. 5. Cervical stenosis. PROCEDURES: 1. Exploratory laparotomy. 2. Lysis of adhesions. 3. Total abdominal hysterectomy. 4. Bilateral salpingectomy. SURGEON: Nic Perkins MD COLUMNIST: Ciro Odell ANESTHESIOLOGIST: Camilo Swartz MD ANESTHETIC: General with regional block. FINDINGS: Uterus was adhesed to the bladder. There were adhesions to the abdominal wall on the right side. Uterus was otherwise unremarkable. Tubes and ovaries unremarkable. SPECIMENS REMOVED: 1. Uterus with cervix. 2. Bilateral tubes. SPECIMEN DISPOSITION: All specimens to pathology. ESTIMATED BLOOD LOSS: Less than or equal to 150 cc. FLUIDS: 1800 cc of Lactated Ringer's. URINE OUTPUT: 50 cc of clear urine. COMPLICATION: None. DRAIN: Moore to gravity. INDICATION: The patient is a 33-year-old female with long-standing history of dysfunctional bleeding and pelvic pain. The patient has previous laparoscopy OPERATIVE REPORT [id number] MONIK BURCIAGA with dense adhesive disease. The patient desires definitive treatment and consented for abdominal hysterectomy with bilateral salpingectomy with ovarian conservation. DESCRIPTION OF PROCEDURE: After informed consent was assured, the patient was taken to the operating room, where anesthetic was obtained. The patient was now prepped and draped. An incision was made over the old Pfannenstiel scar and taken down to the layer of the fascia. The fascia was opened in the midline and extended laterally. The rectus belly was now in the midline. Self-retaining retractor was inserted after packing the bowel free. Two Tanner clamps were used to cross-clamp the uterus and it was elevated. With the bladder blade in place, inspection with the above findings. Metzenbaum scissors were used to lyse the adhesions. Round ligament of the right side was identified, elevated, and stick tied. Bovie cautery was used to enter this space. Dissection was carried down anteriorly through dense adhesions and bladder flap was developed to the midline. A window was made in the posterior leaf of the broad ligament and 2 clamps were passed through here. The pedicle of the uteroovarian ligament was now mobilized with Randolph scissors, tie on a pass and a kcns-cwm-wth stitch was applied for hemostasis. The connective tissue surrounding the right vascular bundle was dissected free and the uterine arteries were clamped, cut, and tied at the level of the internal os. This was repeated on the contralateral side with the round ligament being entered and the anterior leaf of the broad ligament dissected down until the bladder flap was now fully developed. A window was made in the posterior leaf and 2 clamps were applied to here. Again, this pedicle was developed with Randolph scissors. A psvp-[id number]-lzx stitch and a free tie were used to obtain hemostasis here. The connective tissue surrounding left vascular bundle was now dissected free and a clamp was applied at the level of the internal os. This pedicle was mobilized with scissors and a Tanner stitch was applied for hemostasis. Now, using straight clamps, the cardinal ligaments were serially clamped, cut, and tied until the level of the uterosacral ligament was reached. This was done bilaterally. Curved Tanner clamps were used to cross-clamp underneath the cervix. The cervix was now removed with Gerson scissors. Several eichrh-fk-jpxnk stitches were applied across the cuff for hemostasis. Tanner stitches were used at the corners with release of the Tanner clamps. Pelvis was now copiously irrigated and irrigant was removed. Bleeding vessels were cauterized. Attention was directed to the right tube, which was elevated with [place] and a clamp was applied underneath this. It was removed with scissors and stick tied for hemostasis. This was repeated on the contralateral side. Both ovaries were pexed to the round ligaments with stitch. Sponge, lap, and needle counts were correct times 2. Pelvis was inspected one last time and found to have adequate hemostasis. Rectus bellies were reapproximated in midline. The fascia was closed with a looped PDS. Skin was applied to arya. Sterile dressing was applied. The patient was awakened in the recovery room in stable condition. TRANSINT:[id number] Voice Confirmation ID: [id number] DOCUMENT ID: [id number] OPERATIVE REPORT [id number] MONIK BURCIAGA,NIC Magana MD at 0758 CC: [id number] DICTATION DATE: 08/23/18937 CARE CLINICIAN: 08/23/18 1218 ADM IN [facility] [address] [id number]
[2018-08-24 08:20] VITALS: BP 111/75
--- NOTE | 2018-08-24 08:28 | NUR ---
assessment being done. co pain at incision- med given.
--- NOTE | 2018-08-24 08:45 | NUR ---
STATES PAIN IS BETTER- RATES PAIN A 5 BUT IS "GETTING BETTER" MOVING SELF ABOUT IN BED.
--- NOTE | 2018-08-24 10:50 | NUR ---
pt asleep at this time. resp reg and even.
--- NOTE | 2018-08-24 11:09 | NUR ---
PT AUNT AT BEDSIDE- PT AUNT STATES THAT PT IS ALSO ALLERGIC TO ULTRAM AND TORADOL- SHE STATES THAT IT CAUSES SEIZURES. THESE MEDS ADDED TO ALLERGY LIST.
--- NOTE | 2018-08-24 11:26 | NUR ---
BEARD CATH REMOVED POST BULB DEFLATED WITH 1500CC URINE IN BAG.
--- NOTE | 2018-08-24 11:30 | NUR ---
PT STATES PAIN 8. STATES FEELS LIKE HAS GAS. ENCOURAGED TO CHANGE POSITION TO SIDE. BOWEL SOUND PRESENT AND ABD SOFT. ABD DRESSING CD&I.
--- NOTE | 2018-08-24 11:50 | NUR ---
REPORT TO DR PERKINS OF FAMILY STATES THAT PT IS ALLERGIC TO TORADOL. DR PERKINS STATES THAT HE WANTS PT ON PAIN ORAL PAIN MEDICATION AND WILL PUT IN ORDERS.
[2018-08-24 12:00] VITALS: BP 117/78
--- NOTE | 2018-08-24 12:04 | NUR ---
AMBULATORY TO BATHROOM- VOIDED 200CC INTO CONTAINER.
--- NOTE | 2018-08-24 12:16 | NUR ---
PAIN MED BEING GIVEN PER REQUEST.
--- NOTE | 2018-08-24 12:23 | NUR ---
UP TO BATHROOM - VOIDED 150CC URINE AT THIS TIME.
--- NOTE | 2018-08-24 12:30 | NUR ---
PT STATES THAT HER AUNT THINKS THAT TORADOL AND TRAMADOL ARE THE SAME MED- WAS EXPLAINED THAT WAS NOT THE SAME MEDICATION.
--- NOTE | 2018-08-24 14:34 | NUR ---
REPORT TO DR PERKINS'S LOADER HELPER OF NEEDING PAIN MEDICATION - ORAL.
--- NOTE | 2018-08-24 14:45 | NUR ---
dr watts calls unit and states that seziures is not an allergic reaction and that pt has received several doses of toradol without any ill affects and to remove toradol form her allergy list.
--- NOTE | 2018-08-24 14:55 | NUR ---
ASLEEP AT THIS TIME.
[2018-08-24 15:28] VITALS: BP 120/67; Ht 162.6 cm; Wt 83.2 kg
--- NOTE | 2018-08-24 15:40 | NUR ---
up to bathroom- voided 250cc in container. urine clear in appearance. into shower- tolerated well. linens changed.
--- NOTE | 2018-08-24 16:14 | NUR ---
requesting pain medication- rates pain a 8 on scale of 0-10.med given.
--- NOTE | 2018-08-24 16:47 | NUR ---
sitting up in bed looking at cell phone- states that pain is at a 6 but "it is going down"
--- NOTE | 2018-08-24 19:00 | NUR ---
REPORT TO PM SHIFT.
--- NOTE | 2018-08-24 19:38 | NUR ---
PT RESTING IN BED, LOOKING AT CELL PHONE, INFORMED PT THAT I WILL BE BACK SHORTLY TO DO ASSESSMENT, PT REQUESTS PAIN MED IF DUE, I TOLD HER I WILL CHECK AND IF IT IS, I WILL BRING IT WITH ME, PT DENIES FURTHER NEEDS
[2018-08-24 20:17] VITALS: BP 101/54
--- NOTE | 2018-08-24 20:17 | NUR ---
ASSESSMENT PER FLOW SHEET, VS OBTAINED, SALINE LOCK IN UPPER LEFT ARM INTACT WITH NO REDNESS OR EDEMA, BIKINI INC WITH IRIS CDI WITH DRIED DRAINAGE NOTED ON DANA PAD, PT REPORTS FLATUS, NO BM, VOIDING WITH NO DIFFICULTY, AND NO VAG BLEEDING, PT REPORTS DOING I.S. INST, PT ENC TO AMB THIS EVENING, PT REPORTS AMB TO THE BATHROOM, TOLD HER SHE REALLY NEEDED TO WALK IN THE [place], PT VERBALIZES UNDERSTANDING, C/O PAIN, ADM PAIN MED PER MD ORDERS, SEE EMAR, PT DENIES FURTHER NEEDS
--- NOTE | 2018-08-24 21:39 | NUR ---
PT RESTING WITH EYES CLOSED, AROUSES TO SOFT VERBAL STIMULATION, ADM NEURONTIN PER MD ORDERS, PT DENIES NEEDS AT THIS TIME
--- NOTE | 2018-08-24 22:30 | NUR ---
PT AWAKE, INFORMED PT THAT SHE NEEDS TO AMB BEFORE BED, PT STATES "I WILL", DENIES NEEDS AT THIS TIME
--- NOTE | 2018-08-24 23:00 | NUR ---
PT AMB OFF UNIT, GAIT STEADY
--- NOTE | 2018-08-24 23:15 | NUR ---
PT BACK ON UNIT, TO ROOM, REQUESTS PAIN MED WHEN DUE, INFORMED PT IT WAS DUE AROUND MIDNIGHT AND THAT I WILL BRING IT THEN AND OBTAIN VS, PT VERBALIZES UNDERSTANDING, DENIES NEEDS
[2018-08-25 00:18] VITALS: BP 126/63
--- NOTE | 2018-08-25 00:18 | NUR ---
[facility], OBTAINES [facility]NA[facility], BACK TO ROOM AND BED, VS OBTAINED, ADM PERCOCET PER MD ORDERS, PT DENIES FURTHER NEEDS
--- NOTE | 2018-08-25 01:44 | NUR ---
[facility], STATES "I'M GOING TO GET ME A DIET LEMON SITKA SODA", PT RATES INC PAIN 09/27, DENIES FURTHER NEEDS, BACK TO ROOM
--- NOTE | 2018-08-25 02:20 | NUR ---
PT AWAKE, PLAYING ON CELL PHONE, DENIES NEEDS AT THIS TIME
[2018-08-25 04:00] VITALS: BP 111/74
--- NOTE | 2018-08-25 04:29 | NUR ---
PATIENT AWAKE AND ALERT LYING SUPINE IN BED. PATIENT C/O PAIN WITH A SCORE OF 8. C/O OF CONSTANT BURNING AT INCISION SITE. PAIN MEDS GIVEN ORDERED. SEE EMAR. VS DOCUMENTED.
--- NOTE | 2018-08-25 05:38 | NUR ---
PT RESTING IN BED, LOOKING AT PHONE, RATES PAIN 4/10, REQUESTED AND SERVED DIET LEMON EEK, DENIES FURTHER NEEDS
--- NOTE | 2018-08-25 06:40 | NUR ---
PT OUT OF ROOM, STATES "I'M GOING TO TAKE A LITTLE WALKER BEFORE BREAKFAST", GAIT STEADY
--- NOTE | 2018-08-25 07:10 | NUR ---
DR PERKINS ON UNIT. VISITS WITH PT.
[2018-08-25 07:15] VITALS: BP 102/57
--- NOTE | 2018-08-25 07:15 | NUR ---
RECEIVED PT LYING SUPINE IN BED. AWAKE. AAO X 3. VSS. HRRR WITHOUT AUDIBLE MURMUR. BBS CLEAR. BS X 4. ABDOMEN SOFT/NON-DISTENDED. ABDOMINAL INCISION WITH IRIS WITHOUT REDNESS, SWELLING OR DRAINAGE NOTED. PERIPAD TO INCISION. NO VAGINAL DISCHARGE NOTED. PT REPORTS SMALL AMT OF VAGINAL DISCHARGE WHEN WIPING. NEG HOMANS' SIGN. PPP. NO EDEMA NOTED TO BLE. SL TO LEFT UPPER ARM. SITE WITH AREA OF BRUISING NOTED. NO REDNESS OR SWELLING NOTED. SR UP X 2.CALL LIGHT IN REACH.
--- NOTE | 2018-08-25 08:52 | NUR ---
PT CALLS ON LIGHT. REQUESTS PAIN MED FOR INCISIONAL PAIN OF "9" ON 0-10 PAIN SCALE. NORCO 10 2 TABS GIVEN PO ORDERED. PT ALSO GIVEN ORDERED AM MEDS. VERBALIZES UNDERSTANDING.
--- NOTE | 2018-08-25 09:50 | NUR ---
PT SITTING UP IN BED. STATES PAIN NOW "4" ON 0-10 PAIN SCALE. DENIES NEEDS OR C/O.
[2018-08-25] MEDS ORDERED: PERCOCET 7.5/321 TAB PO (11:03)
[2018-08-25] MEDS ORDERED: NEURONTIN 300300 MG PO (11:04)
[2018-08-25] MEDS ORDERED: MOBIC7.5 MG PO (11:04)
--- NOTE | 2018-08-25 11:25 | NUR ---
SL DC'D WITH [facility] INTACT. PRESSURE BANDAGE TO SITE. PT GIVEN DISCHARGE INSTRUCTIONS. VERBALIZES UNDERSTANDING OF ALL INSTRUCTIONS. COPIES GIVEN TO PT. PT PREPARES FOR DISCHARGE.
--- NOTE | 2018-08-25 12:40 | NUR ---
PT AMBULATORY IN HALLS. STATES WAITING ON MOM TO ARRIVE.
--- NOTE | 2018-08-25 13:04 | NUR ---
PT C/O INCISIONAL PAIN AND REQUESTS PAIN MED. PERCOCET 2 TABS GIVEN PO ORDERED. PT INSTRUCTED ON MED. VERBALIZES UNDERSTANDING.
--- NOTE | 2018-08-25 13:15 | NUR ---
PT READY FOR DISCHARGE. DISCHARGED IN STABLE CONDITION VIA WHEELCHAIR PER AUXILIARY STAFF TO PRIVATE VEHICLE.
== END 2018-08-25 13:15 | disposition home or self-care (01) | DRG 743 ==
LOC: D.SDCHOLD 08-23 05:05 → D.WS 08-23 10:42 → D.SDCHOLD 09-03 07:30
PROVIDERS: ADMIT Obstetrics & Gynecology; ATTEND Obstetrics & Gynecology
PROC: 0UT90ZZ Resection of Uterus, Open Approach (ICD-10-PCS; principal; 2018-08-23 07:30)
PROC: 0UT70ZZ Resection of Bilateral Fallopian Tubes, Open Approach (ICD-10-PCS; 2018-08-23 07:30)
DX: N93.8 Other specified abnormal uterine and vaginal bleeding (principal); N94.6 Dysmenorrhea, unspecified; N88.2 Stricture and stenosis of cervix uteri; N73.6 Female pelvic peritoneal adhesions (postinfective)

== ENCOUNTER 2018-10-03 02:12 | Emergency (ER) | payer SELFPAY ==
[~2018-10-03] VITALS: Ht 162.6 cm; Wt 81.8 kg
[~2018-10-03 02:12] MED LIST changes: +BENTYL 20 MG TA20 MG PO; +GLUCOPHAGE1000 MG PO; +MOBIC7.5 MG PO; +NEURONTIN 300300 MG PO; +PERCOCET 7.5/321 TAB PO
[2018-10-03 02:18] VITALS: Ht 162.6 cm; Wt 81.8 kg
[2018-10-03 02:36] LABS: BASOPHILS 0.2 % (0-2); EOSINOPHILS 1.7 % (0-7); HEMATOCRIT 39.5 % (36.0-48.0); HEMOGLOBIN 13.6 g/dL (12-16); IMMATURE GRANULOCYTES 0.4 % (0-5); LYMPHOCYTES 25.2 % (15-50); MCH 28.7 pg (26.0-34.0); MCHC 34.4 g/dL (31.0-37.0); MCV 83.3 fL (80.0-100.0); MEAN PLATELET VOLUME 10.2 fL (7.4-10.4); NEUTROPHILS 67.5 % (40-80); RBC 4.74 10x6/uL (4.00-5.40); RDW 13.2 % (11.5-14.5); WBC 13.9 10x3/uL (4.8-10.8)
[2018-10-03 02:37] LABS: PLATELET COUNT 347 10x3/uL (130-400)
[2018-10-03 02:47] LABS: APPEARANCE HAZY (CLEAR); BACTERIA FEW /hpf (NONE SEEN); BILIRUBIN NEGATIVE (NEGATIVE); COLOR YELLOW (YELLOW); EPITHELIAL CELLS RARE /hpf (0-5); GLUCOSE 1000 mg/dL (NEGATIVE); KETONE NEGATIVE (NEGATIVE); NITRITE NEGATIVE (NEGATIVE); PROTEIN TRACE mg/dL (NEGATIVE); RED CELLS - URINE 0-5 /hpf (0-5); SPECIFIC GRAVITY 1.005 (1.005-1.020); UROBILINOGEN NORMAL (NORMAL)
[2018-10-03 02:51] LABS: ALBUMIN 3.1 g/dL (3.4-5.0); ALKALINE PHOSPHATASE 73 U/L (46-116); ALT (SGPT) 18 U/L (10-68); AMYLASE - SERUM 30 U/L (25-115); BILIRUBIN - TOTAL 0.21 mg/dL (0.2-1.3); CALCIUM 8.7 mg/dL (8.5-10.1); CARBON DIOXIDE 29.6 mmol/L (21.0-32.0); CHLORIDE - SERUM 94 mmol/L (98-107); LIPASE 125 U/L (73-393); POTASSIUM - SERUM 3.3 mmol/L (3.5-5.1); PROTEIN - SERUM 7.4 g/dL (6.4-8.2); SODIUM 131 mmol/L (136-145); UREA NITROGEN 9 mg/dL (7-18); eGFR NON AFRICAN AMERICAN 68 mL/min (90-120)
[2018-10-03 02:52] LABS: CALC OSMOLALITY 281 mosm/kg (275-300); TROPONIN-I < 0.017 ng/mL (0.000-0.060)
[2018-10-03 02:53] LABS: GLUCOSE 450 mg/dL (74-106)
[2018-10-03] MEDS ORDERED: MACROBID100 MG PO (04:07)
[2018-10-03] MEDS ORDERED: DIFLUCAN150 MG PO (04:07)
[2018-10-03 05:40] VITALS: BP 138/89
== END 2018-10-03 05:42 | disposition home or self-care (01) ==
LOC: D.ER 02:12
PROVIDERS: Emergency Medicine
DX: E11.65 Type 2 diabetes mellitus with hyperglycemia (principal); B37.9 Candidiasis, unspecified; N39.0 Urinary tract infection, site not specified

== ENCOUNTER 2019-02-13 19:20 | Emergency (ER) | payer MEDICAID ==
[~2019-02-13] VITALS: Ht 162.6 cm; Wt 79.5 kg
[~2019-02-13 19:20] MED LIST changes: +DIFLUCAN150 MG PO; +MACROBID100 MG PO
[2019-02-13 19:33] VITALS: Ht 162.6 cm; Wt 79.5 kg
[2019-02-13 20:00] LABS: APPEARANCE CLEAR (CLEAR); BILIRUBIN NEGATIVE (NEGATIVE); COLOR YELLOW (YELLOW); GLUCOSE 1000 mg/dL (NEGATIVE); KETONE NEGATIVE (NEGATIVE); NITRITE NEGATIVE (NEGATIVE); PROTEIN 1+ mg/dL (NEGATIVE); SPECIFIC GRAVITY 1.015 (1.005-1.020); UROBILINOGEN NORMAL (NORMAL)
[2019-02-13 20:01] LABS: RED CELLS - URINE 0-5 /hpf (0-5)
[2019-02-13 20:02] LABS: BACTERIA MODERATE /hpf (NEGATIVE); EPITHELIAL CELLS 0-5 /hpf (0-5)
[2019-02-13 20:06] LABS: BASOPHILS 0.2 % (0-2); EOSINOPHILS 2.1 % (0-7); HEMATOCRIT 40.6 % (36.0-48.0); HEMOGLOBIN 13.2 g/dL (12-16); IMMATURE GRANULOCYTES 0.3 % (0-5); LYMPHOCYTES 16.1 % (15-50); MCH 29.2 pg (26.0-34.0); MCHC 32.5 g/dL (31.0-37.0); MCV 89.8 fL (80.0-100.0); MEAN PLATELET VOLUME 9.8 fL (7.4-10.4); MONOCYTES 6.4 % (2-11); NEUTROPHILS 74.9 % (40-80); PLATELET COUNT 358 10x3/uL (130-400); RBC 4.52 10x6/uL (4.00-5.40); RDW 14.3 % (11.5-14.5); WBC 12.6 10x3/uL (4.8-10.8)
[2019-02-13] MEDS ORDERED: DIFLUCAN150 MG PO (20:25)
[2019-02-13] MEDS ORDERED: MACROBID100 MG PO (20:25)
[2019-02-13] MEDS ORDERED: CYCLOBENZAPRINE10 MG PO (20:25)
[2019-02-13] MEDS ORDERED: MEDROL DOSE PACK4 MG PO (20:25)
[2019-02-13 20:28] LABS: ALBUMIN 3.4 g/dL (3.4-5.0); ALKALINE PHOSPHATASE 83 U/L (46-116); ALT (SGPT) 21 U/L (10-68); BILIRUBIN - TOTAL 0.35 mg/dL (0.2-1.3); CALC OSMOLALITY 283 mosm/kg (275-300); CALCIUM 8.6 mg/dL (8.5-10.1); CARBON DIOXIDE 21.6 mmol/L (21.0-32.0); CHLORIDE - SERUM 101 mmol/L (98-107); CREATININE - SERUM 0.9 mg/dL (0.6-1.3); POTASSIUM - SERUM 3.5 mmol/L (3.5-5.1); PROTEIN - SERUM 7.3 g/dL (6.4-8.2); SODIUM 136 mmol/L (136-145); UREA NITROGEN 12 mg/dL (7-18); eGFR NON AFRICAN AMERICAN 76 mL/min (90-120)
[2019-02-13 20:30] LABS: GLUCOSE 323 mg/dL (74-106)
[2019-02-13 21:23] VITALS: BP 118/81
== END 2019-02-13 21:23 | disposition home or self-care (01) ==
LOC: D.ER 19:20
PROVIDERS: Emergency Medicine
DX: N39.0 Urinary tract infection, site not specified (principal); E11.65 Type 2 diabetes mellitus with hyperglycemia; S22.32XD Fracture of one rib, left side, subsequent encounter for fracture with routine healing; W01.0XXD Fall on same level from slipping, tripping and stumbling without subsequent striking against object, subsequent encounter; I10 Essential (primary) hypertension

== ENCOUNTER 2020-07-04 17:39 | Emergency (ER) | payer MEDICAID ==
[~2020-07-04] VITALS: Ht 162.6 cm; Wt 73.6 kg
[~2020-07-04 17:39] MED LIST changes: +MEDROL DOSE PACK4 MG PO
[2020-07-04 17:44] VITALS: Ht 162.6 cm; Wt 73.6 kg
[2020-07-04 18:05] LABS: BASOPHILS 0.4 % (0-2); HEMATOCRIT 39.1 % (36.0-48.0); HEMOGLOBIN 12.7 g/dL (12-16); IMMATURE GRANULOCYTES 0.2 % (0-5); LYMPHOCYTE ABS# 2.27 10x3/uL (1.18-3.74); LYMPHOCYTES 26.6 % (15-50); MCH 26.7 pg (26.0-34.0); MCHC 32.5 g/dL (31.0-37.0); MCV 82.1 fL (80.0-100.0); MEAN PLATELET VOLUME 9.6 fL (7.4-10.4); MONOCYTES 8.4 % (2-11); NEUTROPHIL ABS# 5.32 10x3/uL (1.56-6.13); NEUTROPHILS 62.4 % (40-80); PLATELET COUNT 372 10x3/uL (130-400); RBC 4.76 10x6/uL (4.00-5.40); RDW 14.4 % (11.5-14.5); WBC 8.5 10x3/uL (4.8-10.8)
[2020-07-04 18:14] LABS: CALC OSMOLALITY 283 mosm/kg (275-300); CALCIUM 8.6 mg/dL (8.5-10.1); CARBON DIOXIDE 30.2 mmol/L (21.0-32.0); CHLORIDE - SERUM 99 mmol/L (98-107); CREATININE - SERUM 0.9 mg/dL (0.6-1.3); GLUCOSE 304 mg/dL (74-106); SODIUM 137 mmol/L (136-145); UREA NITROGEN 10 mg/dL (7-18); eGFR NON AFRICAN AMERICAN 75 mL/min (90-120)
[2020-07-04 18:23] LABS: ALBUMIN 2.9 g/dL (3.4-5.0); ALKALINE PHOSPHATASE 64 U/L (30-120); ALT (SGPT) 27 U/L (10-68); AMYLASE - SERUM 25 U/L (25-115); BILIRUBIN - TOTAL 0.21 mg/dL (0.2-1.3); LIPASE 88 U/L (73-393); PROTEIN - SERUM 6.7 g/dL (6.4-8.2); TROPONIN-I < 0.017 ng/mL (0.000-0.060)
[2020-07-04 18:39] LABS: HCG URINE NEGATIVE (NEGATIVE)
[2020-07-04 18:41] LABS: BACTERIA MANY HPF (NONE SEEN); BILIRUBIN 1+ (NEGATIVE); KETONE NEGATIVE (NEGATIVE); NITRITE NEGATIVE (NEGATIVE); WHITE CELLS - URINE 0-5 HPF (0-4)
[2020-07-04] MEDS ORDERED: ZOFRAN ODT4 MG/UDTAB PO (20:00)
[2020-07-04] MEDS ORDERED: OMNICEF300 MG PO (20:00)
[2020-07-04] MEDS ORDERED: TYLENOL W/CODEI1 TAB PO (20:03)
[2020-07-04 20:19] VITALS: BP 132/79
== END 2020-07-04 20:19 | disposition home or self-care (01) ==
LOC: D.ER 17:39
PROVIDERS: Family Medicine
DX: R10.9 Unspecified abdominal pain (principal); N39.0 Urinary tract infection, site not specified; E87.6 Hypokalemia; R11.2 Nausea with vomiting, unspecified; E11.9 Type 2 diabetes mellitus without complications; I10 Essential (primary) hypertension; J45.909 Unspecified asthma, uncomplicated; Z72.0 Tobacco use; Z79.84 Long term (current) use of oral hypoglycemic drugs

== ENCOUNTER 2020-07-28 22:59 | Emergency (ER) | payer MEDICAID ==
[~2020-07-28] VITALS: Ht 162.6 cm; Wt 73.6 kg
[~2020-07-28 22:59] MED LIST changes: +ZOFRAN ODT4 MG/UDTAB PO
[2020-07-28 23:06] VITALS: Ht 162.6 cm; Wt 73.6 kg
[2020-07-28] MEDS ORDERED: ARTHROTEC EC 71 EACH PO (23:27)
--- NOTE | 2020-07-29 00:01 | NUR ---
DR ESPARZA NOTIFIED AND REVIEWED PT's BEHAVIOR AND ASSESSMENT RESULTS. PT IS A LOW RISK PER DR ESPARZA. DR ESPARZA STATED TO GIVE RESOURCES TO PT AT TIME OF DIASCHARGE. NO FURTHER ORDERS AT THIS TIME. RESOURCES REVIEWED WITH PT AND SHE VERBALIZED UNDERSTANDING.
[2020-07-29 00:35] VITALS: BP 119/87
== END 2020-07-29 00:35 | disposition home or self-care (01) ==
LOC: D.ER 22:59
DX: S99.911A Unspecified injury of right ankle, initial encounter (principal); M79.671 Pain in right foot; E11.9 Type 2 diabetes mellitus without complications; I10 Essential (primary) hypertension; J45.909 Unspecified asthma, uncomplicated; Z72.0 Tobacco use; Z79.84 Long term (current) use of oral hypoglycemic drugs; W19.XXXA Unspecified fall, initial encounter; Y93.9 Activity, unspecified; Y92.9 Unspecified place or not applicable

== ENCOUNTER 2020-09-01 22:44 | Emergency (ER) | payer MEDICAID ==
[~2020-09-01] VITALS: Ht 162.6 cm; Wt 73.6 kg
[~2020-09-01 22:44] MED LIST changes: +ARTHROTEC EC 71 EACH PO
[2020-09-01 22:56] VITALS: BP 148/91; Ht 162.6 cm; Wt 73.6 kg
[2020-09-01] MEDS ORDERED: GLUCOPHAGE1000 MG PO (22:59)
[2020-09-01] MEDS ORDERED: GLYBURIDE5 M1 PO (22:59)
[2020-09-02] MEDS ORDERED: HYDROCODON-ACE1 EAC7 PO (02:22)
== END 2020-09-02 02:38 | disposition home or self-care (01) ==
LOC: D.ER 22:44 → D.MS 23:35 → D.EDHOLD 23:36 → D.MS 23:36 → D.ER 09-02 02:38
DX: S93.491A Sprain of other ligament of right ankle, initial encounter (principal); W10.9XXA Fall (on) (from) unspecified stairs and steps, initial encounter; Y93.9 Activity, unspecified; Y92.9 Unspecified place or not applicable; E11.9 Type 2 diabetes mellitus without complications; I10 Essential (primary) hypertension; J45.909 Unspecified asthma, uncomplicated; Z72.0 Tobacco use; Z79.84 Long term (current) use of oral hypoglycemic drugs

== ENCOUNTER → 2020-09-28 15:35 | Outpatient (CLI) | payer MEDICAID ==
[2020-09-01 22:56] VITALS: BMI 27.8
[~2020-09-28 15:35] MED LIST changes: +GLYBURIDE5 M1 PO; +HYDROCODON-ACE1 EAC7 PO
== END | disposition home or self-care (01) ==
LOC: D.MRI 15:00
PROVIDERS: ATTEND Clinical Nurse Specialist Family Health
DX: M25.571 Pain in right ankle and joints of right foot (principal)

== ENCOUNTER 2020-10-15 15:00 | Emergency (ER) | payer MEDICAID ==
[~2020-10-15] VITALS: Ht 162.6 cm; Wt 70.0 kg
[2020-10-15 15:37] VITALS: BP 117/87; Ht 162.6 cm; Wt 70.0 kg
[2020-10-15] MEDS ORDERED: HYDROCODON-ACE1 EAC7 PO (16:39)
[2020-10-15] MEDS ORDERED: MOBIC7.5 MG PO (16:39)
== END 2020-10-15 17:33 | disposition home or self-care (01) ==
LOC: D.ER 15:00
DX: M22.11 Recurrent subluxation of patella, right knee (principal); I10 Essential (primary) hypertension; E11.9 Type 2 diabetes mellitus without complications; Z72.0 Tobacco use; Z79.84 Long term (current) use of oral hypoglycemic drugs

== ENCOUNTER → 2020-10-18 15:07 | Outpatient (CLI) | payer MEDICAID ==
[2020-10-15 15:37] VITALS: BMI 26.5
== END | disposition home or self-care (01) ==
LOC: D.MRI 15:07
PROVIDERS: ATTEND Clinical Nurse Specialist Family Health
DX: M25.561 Pain in right knee (principal)